=== PATIENT | male | born 1960 | race Caucasian/White ===

== ENCOUNTER 2017-09-08 05:57 | Day surgery (SDC) | payer OTHER ==
[2017-09-03 09:21] LABS: Protime INR 0.96
[2017-09-03 09:25] LABS: Absolute Lymphocytes (CBC) 2.5 K/uL (0.7-4.9); Absolute Monocytes 0.8 K/uL (0.1-1.3); Absolute Neutrophil 8.4 K/uL (1.8-8.0); Basophils % 0.5 % (0-1.3); Hematocrit 45.2 % (39.6-49.0); Lymphocytes % 20.8 % (15.3-44.8); MCV 87.7 fL (80-100); MPV 8.5 fL (7.6-11.3); RBC Red Blood Cell Count 5.15 M/uL (4.33-5.43)
[2017-09-03 09:46] LABS: BUN Blood Urea Nitrogen 13 mg/dL (6-20); Bicarbonate 27 mEq/L (21-31); Glucose Level 117 mg/dL (65-120); Potassium 4.1 mEq/L (3.6-5.0); Sodium Level 137 mEq/L (135-145)
--- NOTE | 2017-09-03 10:21 | RAD REPORT ---
EXAM DESCRIPTION: Quin De La Cruz And Lat (2 Views)09/03/2017 9:20 am CLINICAL HISTORY: Preop for shoulder surgery. COMPARISON: None FINDINGS: Mild bilateral lung interstitial opacities are suspected bilaterally. A lung consolidatio n is not noted. 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
--- NOTE | 2017-09-03 14:07 | EKG ---
Test Date: 2017-09-03 Test Time: 09:04:01 Television And Radio Repairer: MJ MEASUREMENT RESULTS: Intervals: Rate: 63 FL: 150 QRSD: 88 QT: 414 QTc: 423 Vantage: P: 52 FL: 150 QRS: 51 T: 49 INTERPRETIVE STATEMENTS: Normal sinus rhythm Normal ECG No previous ECG available for comparison Electronically Signed On 09-03-17 14:06:16 CDT by Fritz Olson
[2017-09-08] MEDS ORDERED: NA CHLORIDE 0.9% 1,000 ML ONE (06:24)
[2017-09-08] MEDS ORDERED: CEFAZOLIN/SWI 1gm 2 GM/20 ML SYR ONE (06:48)
[2017-09-08] MEDS ORDERED: ROCURONIUM 50 MG/5 ML VIAL IV ONE (06:53)
[2017-09-08] MEDS ORDERED: FENTANYL CITR 250 MCG/5 ML ONE (06:53)
[2017-09-08] MEDS ORDERED: LIDOCAINE 2% MPF 5 ML VIAL ONE (06:53)
[2017-09-08] MEDS ORDERED: PROPOFOL 200 MG/20 ML VIAL IV ONE (06:53)
[2017-09-08] MEDS ORDERED: MIDAZOLAM HCL 2 MG/2 ML INJ ONE ×2 (06:53→11:47)
[2017-09-08] MEDS ORDERED: EPINEPHRINE/PF 1 MG/ML AMP ONE (06:57)
[2017-09-08] MEDS ORDERED: ROPLVACAINE HCL 40 ML ONE (07:03)
[2017-09-08] MEDS ORDERED: DEXAMETHASONE 10 MG/ML VIAL ONE (07:04)
[2017-09-08] MEDS ORDERED: DEXAMETHASONE 4 MG/ML VIAL ONE ×2 (07:05→12:04)
[2017-09-08] MEDS: NA CHLORIDE 0.9% 1,000 ML ONE ×2 (08:20→08:45)
[2017-09-08] MEDS ORDERED: KETOROLAC 30 MG/ML INJ ONE ×2 (09:39→12:54)
[2017-09-08] MEDS ORDERED: MORPHINE 10 MG/ML VIAL ONE (10:45)
--- NOTE | 2017-09-08 10:56 | P.BOP ---
Preoperative diagnosis: right rotator cuff tear, biceps tenonsynovitis, AC arthrosis, impingement Postoperative diagnosis: same Primary procedure: right shoulder arthroscopic rotator cuff repair Secondary procedure: right arthroscopic subacromial decompression with distal clavicle excision Other procedure(s): right open subpectoral biceps tenodesis Service Tester: NONE,NONE Estimated blood loss: <10 cc Specimen: none Findings: see dictation Anesthesia: General Complications: None Implants: 2- 5.5 mm arthrex corkscrew, 2- 4.75 swivelock, 1 - 7 mm biotenodesis screw Fluids & blood products: per anesthesia Transferred to: Recovery Room Condition: Good
[2017-09-08] MEDS: MEPERIDINE HCL 50 MG/ML AMP ONE ×4 (11:25→11:40)
--- NOTE | 2017-09-08 11:42 | RAD REPORT ---
EXAM DESCRIPTION: RAD - Shoulder 1 View - 09/08/2017 11:35 am CLINICAL HISTORY: Right shoulder surgery FINDINGS: Frontal view of the right shoulder was obtained. No fracture or dislocation is seen. Narro wing of the acromioclavicular joint is noted.
[2017-09-08] MEDS ORDERED: ROPLVACAINE HCL 20 ML ONE (12:04)
[2017-09-08] MEDS ORDERED: HYDROCODONE/APAP 7.5/325 MG TAB ONE (12:20)
[2017-09-08] MEDS: MORPHINE 4 MG/ML SYR ONE ×2 (13:16→13:21)
[2017-09-08] MEDS ORDERED: MORPHINE 4 MG/ML SYR ONE (13:28)
[2017-09-08] MEDS ORDERED: IBUPROFEN 400 MG TAB ONE (13:44)
--- NOTE | 2017-09-09 09:22 | OP ---
Date of Procedure: 09/08/2017 Surgeon: Luis F Choudhury MD Preoperative Diagnoses: 1. Right shoulder rotator cuff tear. 2. Right shoulder bicipital tenosynovitis. 3. Right shoulder impingement syndrome. 4. Right shoulder distal acromioclavicular joint arthrosis. Postoperative Diagnoses: 1. Right shoulder rotator cuff tear. 2. Right shoulder bicipital tenosynovitis. 3. Right shoulder impingement syndrome. 4. Right shoulder distal acromioclavicular joint arthrosis. Procedures Performed: 1. Right shoulder arthroscopic rotator cuff repair. 2. Right shoulder arthroscopic subacromial decompression. 3. Right shoulder arthroscopic distal clavicle excision. 4. Right shoulder open subpectoral biceps tenodesis. Anesthesia: General endotracheal. Fluids: Per Anesthesia record. Estimated Blood Loss: Less than 10 cc. Complication: None. Implants: 1. Two 5.5 mm Arthrex corkscrew. 2. Two 4.5 mm Arthrex SwiveLock. 3. 4 x 19 mm Bio-Tenodesis screw. Indication For Procedure: Alan is a 57-year-old male who presented to my clinic with signs, symptoms, and MRI finding consistent with a retracted rotator cuff tear, bicipital tenosynovitis as well as impingement syndrome with AC joint arthrosis. I discussed with the patient at length risks and benefits associated with operative and nonoperative treatment as well as possibility of irreparable tear and he expressed understanding. Description Of Procedure: After informed consent was obtained, the patient was identified in the preoperative holding area. The right upper extremity was marked. The patient was then taken to the PACU where he underwent an interscalene block to the right upper extremity performed by Anesthesia. He was then transferred to the operating room, transferred to the operating table in supine fashion, placed under general endotracheal anesthesia. He was then placed in a well-padded beach chair position with his extremities well-padded. The right upper extremity was examined. The patient had near full range of motion of his right shoulder with no instability of the glenohumeral joint. Right upper extremity was then prepped and draped in usual sterile fashion. A time-out was initiated. Correct patient and procedure were confirmed and identified. The patient did receive his preoperative prophylactic antibiotics. Via the posterior portal position, a spinal needle was introduced in the glenohumeral joint and the shoulder was injected with 30 cc of normal saline to distend the capsule. A posterior portal was then created and arthroscope was brought into the posterior portal position. A diagnostic arthroscopy was performed. An anterior portal was then made given that the patient would later have a distal clavicle excision. The probe was introduced through the anterior cannula. It was noted that the labrum was stable and probed superiorly, inferiorly, and posteriorly. There was significant fraying of the biceps tenodesis anchor and biceps tenotomy was performed using a meniscal biter. There was some frayed tissue on the lower half of the glenoid consistent with grade 2 chondromalacia changes and chondroplasty was performed using the arthroscopic shaver. The humeral head was overall with pristine cartilage. The scapularis was found to be intact and stable to probe. There were no loose bodies within the axillary pouch. It was noted that the patient had a rotated supraspinatus, which was retracted to the level of the glenoid. Soft tissue releases were performed deep to the supraspinatus using an elevator and radiofrequency ablator as well as scar tissue debridement superior to the supraspinatus. The arthroscope was then brought into the subacromial space and a subacromial bursectomy was performed. Again radiofrequency ablator was used to clean off the undersurface of the acromion and released the scar tissue around the rotator cuff tear. A lateral cannula was placed and a grasper was then used and it was noted that the rotator cuff tear was reduced to the greater tuberosity. The greater tuberosity was then debrided of soft tissue using an arthroscopic shaver and bleeding bony bed was created. Two double- loaded anchors were placed medially, one anteriorly and one posteriorly and 8 sutures were passed through the anterior infraspinatus from an anterior to posterior direction in a horizontal mattress fashion. After all sutures were passed using a scorpion suture passer they were tied down on the greater tuberosity. The lateral row fixation was then completed using sutures coming anterior and posteriorly in a crisscross fashion. Lateral anchors were placed. The remaining sutures were cut. There was good overall reduction of the supraspinatus on the greater tubersosity. Next, attention was taken to perform the decompression and acromioplasty was performed using an arthroscopic romel performing an arthroscopic acromioplasty from an anterior and anterolateral acromion. Next, via the anterior portal, a distal clavicle excisionwas performed using a radiofrequency ablator and an arthroscopic romel removing approximately 5 mm of distal clavicle. There was no noted impingement of the distal clavcile to the acromion under direct visualization. The arthroscopic instruments were then removed. Next, attention was taken to the biceps tenodesis. Approximately, a 4 cm longitudinal incision was made just medial to the insertion of the pectoralis major tendon. Dissection was then taken down to the fascia, which was released. The long head of the biceps tendon was found and brought out through the incision. It was marked to 3 cm distal to the musculotendinous junction and whipstitched using a FiberLoop. Remaining tendon was then removed. It was measured and a size 7 mm screw was selected and use of a 7.5 mm reamer, which was placed in unicortical fashion. One suture limb was then passed through the screw and the biceps tendon was then fixed within the tunnel using a 7 x 19 mm Bio-Tenodesis screw. There was good overall fit of the tendon within the tunnel and it was found to be secure. Remaining suture was then removed. Wounds were then irrigated thoroughly with normal saline. Subcutaneous tissue was approximated using a 2-0 Vicryl. Portals and skin were approximated using a 3-0 Monocryl. Sterile dressings were applied. The patient was placed in a shoulder immobilizer, awakened, and transferred to PACU in stable condition. Postoperative Plan: He will follow up in my clinic later this week for wound check. He will follow the large rotator cuff repair protocol beginning 6 weeks postoperatively. ARAVIND/BECKY Voice ID: [id number] Report ID: [id number] RONEL
== END 2017-09-08 14:20 | disposition home or self-care (01) ==
LOC: OR 05:57
PROVIDERS: ATTEND Orthopaedic Surgery Sports Medicine
PROC: 0RHJ44Z Insertion of Internal Fixation Device into Right Shoulder Joint, Percutaneous Endoscopic Approach (ICD-10-PCS; 2017-09-08)
PROC: 0RNJ4ZZ Release Right Shoulder Joint, Percutaneous Endoscopic Approach (ICD-10-PCS; 2017-09-08)
PROC: 0PB94ZZ Excision of Right Clavicle, Percutaneous Endoscopic Approach (ICD-10-PCS; 2017-09-08)
PROC: 0LS10ZZ Reposition Right Shoulder Tendon, Open Approach (ICD-10-PCS; 2017-09-08)
PROC: 0LQ14ZZ Repair Right Shoulder Tendon, Percutaneous Endoscopic Approach (ICD-10-PCS; principal; 2017-09-08 07:30)
DX: M75.121 Complete rotator cuff tear or rupture of right shoulder, not specified as traumatic (principal); M75.21 Bicipital tendinitis, right shoulder; M75.41 Impingement syndrome of right shoulder; M19.011 Primary osteoarthritis, right shoulder; E11.8 Type 2 diabetes mellitus with unspecified complications; Z79.84 Long term (current) use of oral hypoglycemic drugs; Z87.891 Personal history of nicotine dependence
CPT/HCPCS: 36415; 71046; 73020; 80048; 82962; 85025; 85610; 85730; 93005; J0171; J0690; J1100; J2175; J2250; J2795; J7030